=== PATIENT | female | born 1975 | race Caucasian/White ===

== ENCOUNTER 2016-09-03 15:22 | Outpatient (CLI) | payer OTHER | END 2016-09-03 15:23 | disposition home or self-care (01) | DX: R30.0 Dysuria (principal); Z11.3 Encounter for screening for infections with a predominantly sexual mode of transmission ==

== ENCOUNTER 2017-04-25 10:17 | Outpatient (CLI) | payer OTHER | END 2017-04-25 10:18 | LOC: LAB.R 10:17 | PROVIDERS: ATTEND Physician Assistant Medical | DX: J34.89 Other specified disorders of nose and nasal sinuses (principal) | CPT/HCPCS: 87070; 87205 ==

== ENCOUNTER 2017-09-23 13:03 | Outpatient (CLI) | payer OTHER ==
--- NOTE | 2017-09-23 16:15 | XRAY Report ---
THREE VIEW CERVICAL SPINE: 09/23/2017 CLINICAL INDICATION: Neck pain. FINDINGS: AP, lateral, odontoid views of the cervical spine demonstrate normal height and alignment of the vertebral bodies. The disk spaces are preserved. The prevertebral soft tissues are unremarkable. IMPRESSION: NORMAL CERVICAL SPINE. TD: 09/23/2017 16:15
--- NOTE | 2017-09-23 16:16 | XRAY Report ---
TWO VIEW THORACIC SPINE: 09/23/2017 CLINICAL INDICATION: Back pain. FINDINGS: Frontal and lateral views of the thoracic spine demonstrate minimal degenerative changes, with small anterior osteophytes. There is no evidence of compression fracture. Minimal dextroscoliosis is present, which may be positional in nature. IMPRESSION: MINIMAL DEGENERATIVE CHANGES. TD: 09/23/2017 16:16
--- NOTE | 2017-09-23 16:18 | XRAY Report ---
TWO VIEW LUMBAR SPINE: 09/23/2017 CLINICAL INDICATION: Back pain. FINDINGS: Frontal and lateral views of the lumbar spine demonstrate normal height and alignment of the vertebral bodies. The disk spaces are preserved. There is no evidence of fracture or subluxation. The bowel gas pattern appears unremarkable. IMPRESSION: NORMAL LUMBAR SPINE. TD: 09/23/2017 16:17
--- NOTE | 2017-09-23 16:19 | XRAY Report ---
SACROILIAC JOINTS: 09/23/2017 CLINICAL INDICATION: Pain. FINDINGS: Frontal and bilateral oblique views of the sacroiliac joints demonstrate no evidence of fracture. The sacroiliac joints are preserved. The sacral ala appear unremarkable. No foreign body is seen in the soft tissues. IMPRESSION: NORMAL SACROILIAC JOINTS. TD: 09/23/2017 16:19
--- NOTE | 2017-09-23 16:20 | XRAY Report ---
TWO VIEW RIGHT SHOULDER: 09/23/2017 CLINICAL INDICATION: Pain. FINDINGS: Frontal and scapular Y views of the right shoulder demonstrate no evidence of fracture. The joint spaces are preserved. No foreign body is seen in the soft tissues. IMPRESSION: NORMAL RIGHT SHOULDER. TD: 09/23/2017 16:20
== END 2017-09-23 13:04 | disposition home or self-care (01) ==
LOC: DI 13:03
PROVIDERS: ATTEND Physician Assistant Medical
DX: M47.894 Other spondylosis, thoracic region (principal); M25.511 Pain in right shoulder
CPT/HCPCS: 72040; 72070; 72100; 72202

== ENCOUNTER 2018-05-17 13:35 | Outpatient (CLI) | payer OTHER | END 2018-05-17 13:36 | LOC: LAB.R 13:35 | PROVIDERS: ATTEND Physician Assistant Medical | DX: J34.89 Other specified disorders of nose and nasal sinuses (principal) | CPT/HCPCS: 87070; 87205 ==

== ENCOUNTER 2019-06-15 07:00 | Outpatient (CLI) | payer OTHER ==
[2019-06-15 23:56] LABS: TRICHOMONAS VAGINALIS DNA NEGATIVE (NEGATIVE)
== END 2019-06-15 23:59 | disposition home or self-care (01) ==
LOC: LAB.R 07:00
PROVIDERS: ATTEND Obstetrics & Gynecology
DX: Z20.2 Contact with and (suspected) exposure to infections with a predominantly sexual mode of transmission (principal)
CPT/HCPCS: 87491; 87591; 87661

== ENCOUNTER 2019-07-13 08:00 | Outpatient (CLI) | payer OTHER ==
[2019-07-13 17:08] LABS: CANDIDA GROUP DNA NEGATIVE (NEGATIVE); CANDIDA KRUSEI DNA NEGATIVE (NEGATIVE); TRICHOMONAS VAGINALIS DNA NEGATIVE (NEGATIVE)
== END 2019-07-13 23:59 ==
LOC: LAB.R 08:00
PROVIDERS: ATTEND Nurse Practitioner Obstetrics & Gynecology
DX: N76.0 Acute vaginitis (principal); N30.90 Cystitis, unspecified without hematuria
CPT/HCPCS: 87661; 87801

== ENCOUNTER 2019-07-25 08:00 | Outpatient (CLI) | payer OTHER ==
[2019-07-25 21:08] LABS: CANDIDA GROUP DNA NEGATIVE (NEGATIVE); CANDIDA KRUSEI DNA NEGATIVE (NEGATIVE); TRICHOMONAS VAGINALIS DNA NEGATIVE (NEGATIVE)
== END 2019-07-25 23:59 | disposition home or self-care (01) ==
LOC: LAB.R 08:00
PROVIDERS: ATTEND Obstetrics & Gynecology
DX: N76.0 Acute vaginitis (principal)
CPT/HCPCS: 87661; 87801

== ENCOUNTER 2019-12-14 08:00 | Outpatient (CLI) | payer OTHER | END 2019-12-14 23:59 | disposition home or self-care (01) | LOC: LAB.WCP 08:00 | PROVIDERS: ATTEND Nurse Practitioner Family | DX: J34.89 Other specified disorders of nose and nasal sinuses (principal) | CPT/HCPCS: 87640 ==

== ENCOUNTER 2020-11-11 21:37 | Emergency (ER) | payer OTHER ==
[2020-11-11 21:48] VITALS: BP 115/72
--- NOTE | 2020-11-11 21:50 | ED Physician Documentation ---
PD HPI HEENT - Stated complaint Stated Complaint: L EYE IRRITATION - Chief complaint Chief Complaint: General - History obtained from History obtained from: Patient - History of Present Illness Timing - onset: How many days ago (2) Timing - duration: Days Timing - details: Abrupt onset Pain level now: 2 Improves: Nothing Associated symptoms: No: Fever, Congestion, Rhinorrhea, Facial swelling - Additional information Additional information: c/o left eye irritation, tearing, redness, and FB sensation. 2 days ago patient was pulling seeds off of a plant and one of the seeds struck her in the left eye. she was wearing contact lenses at the time but has since been wearing glasses due to irritation. she had redness and thick, white discharge the following day (yesterday) and although the discharge has resolved (now just frequent watery tearing), the left eye has become more red and irritated with FB sensation and burning sensation. denies visual changes Review of Systems Constitutional: reports: Reviewed and negative Eyes: reports: Discharge, Irritation. 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 - Present Medications Home Medications: Ambulatory Orders Medication Instructions Recorded Confirmed Cetirizine HCl [All Day Allergy 20 mg PO DAILY 11/11/20 11/11/20 Relief] Ofloxacin 0.3% Ophth Drops 1 drops LEFTEYE QID 7 Days #5 ml 11/11/20 [Ocuflox 0.3% Ophth Drops] Spironolactone [Aldactone] 50 mg PO DAILY 11/11/20 11/11/20 - Allergies Allergies/Adverse Reactions: Allergies Allergy/AdvReac Type Severity Reaction Status Date / Time Penicillins Allergy Severe Rash Verified 11/09/12 00:52 - Social History Does the pt smoke?: No Smoking Status: Never smoker PD ED PE NORMAL - Vitals Vital signs reviewed: Yes - General General: Alert and oriented X 3, No acute distress, Well developed/nourished PD ED PE EXPANDED - HEENT HEENT: PERRL, EOMI - Eyes Eyes: Left eye, Normal eyelids, No eyelid FB (everted), Injected conj/sclera, Anterior chambers clear. No: Eyelid swelling, Exudate, Conj/sclera FB, Subconj hemorrhage, Corneal FB, Corneal abrasion, Corneal ulcer, Fluorescein uptake Results - Vitals Vitals: Vital Signs - 24 hr 11/11/20 21:40 Temperature 36.9 C Heart Rate 71 Respiratory 14 Rate Blood Pressure 115/72 O2 Saturation 99 Oxygen O2 Source Room air PD MEDICAL DECISION MAKING - ED course Complexity details: considered differential, d/w patient ED course: left eye chemosis without fluorescein uptake nor visualized FB. Departure - Departure Disposition: 01 Home, Self Care Clinical Impression: Conjunctivitis Qualifiers: Conjunctivitis type: acute Acute conjunctivitis type: unspecified Laterality: left Qualified Code(s): H10.32 - Unspecified acute conjunctivitis, left eye Condition: Good Instructions: ED Conjunctivitis Nonspecific Prescriptions: Ofloxacin 0.3% Ophth Drops [Ocuflox 0.3% Ophth Drops] 1 drops LEFTEYE QID 7 Days #5 ml Comments: Do not wear contact lenses until 24 hours after symptoms have resolved Discharge Date/Time: 11/11/20 22:39
[2020-11-11] MEDS ORDERED: PROPARACAINE 0.5% OPHTH DROPS 15 ML LEFTEYE STA (21:51)
[2020-11-11] MEDS ORDERED: POLYMYXIN B/TRIMETH OPHTH DROPS LEFTEYE STA (22:06)
== END 2020-11-11 22:39 | disposition home or self-care (01) ==
LOC: ED 21:37
DX: H10.32 Unspecified acute conjunctivitis, left eye (principal)
CPT/HCPCS: 99282; 99283; A9270; J3490

== ENCOUNTER 2020-12-26 07:00 | Outpatient (CLI) | payer OTHER ==
[2020-12-26 22:44] LABS: BACTERIAL VAGINOSIS DNA POSITIVE (NEGATIVE); CANDIDA GLABRATA DNA NEGATIVE (NEGATIVE); CANDIDA GROUP DNA NEGATIVE (NEGATIVE); CANDIDA KRUSEI DNA NEGATIVE (NEGATIVE); TRICHOMONAS VAGINALIS DNA NEGATIVE (NEGATIVE)
[2020-12-26 22:57] LABS: CHLAMYDIA TRACHOMATIS DNA NEGATIVE (NEGATIVE); NEISSERIA GONORRHOEAE DNA NEGATIVE (NEGATIVE); TRICHOMONAS VAGINALIS DNA NEGATIVE (NEGATIVE)
== END 2020-12-26 23:59 | disposition home or self-care (01) ==
LOC: LAB.N 07:00
PROVIDERS: ATTEND Physician Assistant Medical
DX: N89.8 Other specified noninflammatory disorders of vagina (principal)
CPT/HCPCS: 87086; 87491; 87591; 87661; 87801

== ENCOUNTER 2021-02-27 08:00 | Outpatient (CLI) | payer OTHER ==
[2021-02-28 03:23] LABS: BACTERIAL VAGINOSIS DNA POSITIVE (NEGATIVE); CANDIDA GLABRATA DNA NEGATIVE (NEGATIVE); CANDIDA GROUP DNA NEGATIVE (NEGATIVE); CANDIDA KRUSEI DNA NEGATIVE (NEGATIVE); TRICHOMONAS VAGINALIS DNA NEGATIVE (NEGATIVE)
== END 2021-02-27 23:59 | disposition home or self-care (01) ==
LOC: LAB.N 08:00
PROVIDERS: ATTEND Physician Assistant Medical
DX: N39.0 Urinary tract infection, site not specified (principal); N89.8 Other specified noninflammatory disorders of vagina
CPT/HCPCS: 87086; 87661; 87801

== ENCOUNTER 2021-03-26 08:00 | Outpatient (CLI) | payer OTHER | END 2021-03-26 23:59 | disposition home or self-care (01) | LOC: LAB.N 08:00 | PROVIDERS: ATTEND Physician Assistant Medical | DX: R31.9 Hematuria, unspecified (principal) | CPT/HCPCS: 87086 ==

== ENCOUNTER 2021-03-31 08:00 | Outpatient (CLI) | payer OTHER | END 2021-03-31 23:59 | disposition home or self-care (01) | LOC: LAB 08:00 | PROVIDERS: ATTEND Nurse Practitioner | DX: J34.89 Other specified disorders of nose and nasal sinuses (principal) | CPT/HCPCS: 87070; 87205 ==

== ENCOUNTER 2021-06-04 08:00 | Outpatient (CLI) | payer OTHER ==
[2021-06-04 15:41] LABS: BILIRUBIN,URINE NEGATIVE (NEGATIVE); GLUCOSE, URINE (UA) NEGATIVE (NEGATIVE); KETONES,URINE (UA) NEGATIVE (NEGATIVE); LEUKOCYTE ESTERASE, URINE NEGATIVE (NEGATIVE); NITRITE,URINE NEGATIVE (NEGATIVE); OCCULT BLOOD,URINE NEGATIVE (NEGATIVE); PROTEIN,URINE NEGATIVE (NEGATIVE); UROBILINOGEN,URINE 0.2 (NORMAL) E.U./dL (NORMAL)
[2021-06-04 15:48] LABS: CLARITY,URINE CLEAR (CLEAR)
[2021-06-04 15:49] LABS: BACTERIA,URINE None Seen /HPF (None Seen); RBC,URINE None Seen /HPF (0-5); SQUAMOUS EPITHELIAL CELL,UR RARE Squamous (<= Few); WBC,URINE 0-3 /HPF (0-5)
[2021-06-04 21:53] LABS: CHLAMYDIA TRACHOMATIS DNA NEGATIVE (NEGATIVE); NEISSERIA GONORRHOEAE DNA NEGATIVE (NEGATIVE); TRICHOMONAS VAGINALIS DNA NEGATIVE (NEGATIVE)
[2021-06-04 22:40] LABS: BACTERIAL VAGINOSIS DNA NEGATIVE (NEGATIVE); CANDIDA GLABRATA DNA NEGATIVE (NEGATIVE); CANDIDA GROUP DNA POSITIVE (NEGATIVE); CANDIDA KRUSEI DNA NEGATIVE (NEGATIVE); TRICHOMONAS VAGINALIS DNA NEGATIVE (NEGATIVE)
== END 2021-06-04 23:59 | disposition home or self-care (01) ==
LOC: LAB 08:00
PROVIDERS: ATTEND Obstetrics & Gynecology
DX: R31.9 Hematuria, unspecified (principal); N89.8 Other specified noninflammatory disorders of vagina
CPT/HCPCS: 81001; 87086; 87491; 87591; 87661; 87801

== ENCOUNTER 2021-06-12 19:56 | Outpatient (CLI) | payer OTHER ==
--- NOTE | 2021-06-14 10:50 | Ultrasound Report ---
PROCEDURE: Pelvic w/Transvaginal INDICATIONS: PELVIC PAIN TECHNIQUE: Real-time scanning was performed of the pelvic organs, with image documentation. Additional endovagi nal scanning was necessary due to incomplete visualization of the adnexal and endometrial structures by transabdominal scanning. COMPARISON: None. FINDINGS: No pathologic free abdominal or pelvic fluid. Uterus: Uterus is mildly enlarged measuring 5.2 x 6.0 x 9.6 cm. Heterogenous uterine echotexture wi thout discrete mass. Ovaries: Right ovary unremarkable measuring 1.5 x 1.8 x 2.4 cm. Left ovary measures 2.1 x 2.7 x 3.9 cm, inclusive of an approximately 2.6 cm hypoechoic mass which may represent either a cyst or endomet rioma. IMPRESSION: Approximately 2.6 cm hypoechoic mass in the left ovary could represent a cyst or endometrioma. Follow -up in 4-6 weeks recommended to help differentiate. Heterogenous uterine echotexture without discrete mass. Findings may represent adenomyosis in the ruth ropriate clinical setting. Reviewed by: Kyle Osborne MD on 06/14/2021 10:49 AM PST Approved by: Kyle Osborne MD on 06/14/2021 10:49 AM PST Station ID: [id number]
== END 2021-06-12 19:57 | disposition home or self-care (01) ==
LOC: DI 19:56
PROVIDERS: ATTEND Obstetrics & Gynecology
DX: N83.9 Noninflammatory disorder of ovary, fallopian tube and broad ligament, unspecified (principal)

== ENCOUNTER 2021-06-19 11:27 | Outpatient (CLI) | payer OTHER ==
[2021-06-19 17:45] LABS: BASOPHILS # (AUTO) 0.1 10^3/uL (0.0-0.1); BASOPHILS % (AUTO) 1.6 %; EOSINOPHILS # (AUTO) 0.2 10^3/uL (0.0-0.7); EOSINOPHILS % (AUTO) 4.4 %; HCT - HEMATOCRIT 41.1 % (37.0-47.0); HGB - HEMOGLOBIN 13.6 g/dL (12.0-16.0); LYMPHOCYTES % (AUTO) 26.8 %; MEAN CORPUSCULAR HEMOGLOBIN 30.2 pg (27.0-31.0); MEAN CORPUSCULAR HGB CONC 33.1 g/dL (32.0-36.0); MEAN CORPUSCULAR VOLUME 91.1 fL (81.0-99.0); MEAN PLATELET VOLUME 11.4 fL (7.9-10.8); MONOCYTES # (AUTO) 0.4 10^3/uL (0.0-1.0); MONOCYTES % (AUTO) 10.2 %; NEUTROPHILS # (AUTO) 2.2 10^3/uL (1.5-6.6); PLT - PLATELET COUNT 174 10^3/uL (130-450); RED BLOOD COUNT 4.51 10^6/uL (4.20-5.40); RED CELL DISTRIBUTION WIDTH 13.2 % (12.0-15.0); WHITE BLOOD COUNT 3.8 x10^3/uL (4.8-10.8)
[2021-06-19 18:05] LABS: ALBUMIN 4.6 g/dL (3.2-5.5); ALBUMIN/GLOBULIN RATIO 1.7 (1.0-2.2); ALKALINE PHOSPHATASE 41 IU/L (42-121); ALT ALANINE AMINOTRANSFERASE 17 IU/L (10-60); AST ASPARTATE AMINOTRANSFERASE 21 IU/L (10-42); BUN - BLOOD UREA NITROGEN 17 mg/dL (6-20); CALCIUM 9.2 mg/dL (8.5-10.3); CARBON DIOXIDE - CO2 29 mmol/L (21-32); CHLORIDE 102 mmol/L (101-111); CHOL/HDL RATIO 2.7 (<4.4); CHOLESTEROL 219 mg/dL; CREATININE 0.8 mg/dL (0.4-1.0); GFR - MDRD 77 (>89); GLUCOSE 79 mg/dL (70-100); HDL CHOLESTEROL 81 mg/dL; LDL CHOLESTEROL,CALCULATED 129 mg/dL; LDL/HDL RATIO 1.6 (<4.4); POTASSIUM 4.3 mmol/L (3.5-5.0); SODIUM 138 mmol/L (135-145); TOTAL PROTEIN 7.3 g/dL (6.7-8.2); TRIGLYCERIDES 43 mg/dL; VLDL CHOLESTEROL 9 mg/dL
[2021-06-19 18:14] LABS: THYROID STIMULATING HORMONE 2.33 uIU/mL (0.34-5.60)
== END 2021-06-19 23:59 | disposition home or self-care (01) ==
LOC: LAB.WCP 11:27
PROVIDERS: ATTEND Nurse Practitioner
DX: R53.83 Other fatigue (principal); Z13.220 Encounter for screening for lipoid disorders
CPT/HCPCS: 36415; 80053; 80061; 83721; 84443; 85025

== ENCOUNTER 2021-07-10 09:02 | Outpatient (CLI) | payer OTHER ==
--- NOTE | 2021-07-13 15:49 | Mammography Report ---
BILATERAL DIGITAL DIAGNOSTIC MAMMOGRAM 3D/2D: 07/10/2021 CLINICAL: Palpable right breast lump. Bloody nipple discharge right breast. Comparison is made to exams dated: 12/12/2014 mammogram, 09/07/2013 mammogram, and 09/07/2013 ultrasound - [facility]. The tissue of both breasts is heterogeneously dense. This may lower the sensitivity of mammography. There are new diffuse segmental calcifications in the right breast at 10 o'clock posterior depth. Th max are seen in additional views. This correlates as palpated. No other significant masses, calcifications, or other findings are seen in either breast. IMPRESSION: INCOMPLETE: NEEDS ADDITIONAL IMAGING EVALUATION The new diffuse segmental calcifications in the right breast are indeterminate. An ultrasound is rec ommended. This exam was interpreted at Station ID: [id number]. NOTE: For mammograms, a report in lay terms will be sent to the patient. Approximately 15% of breast malignancies will not be visualized mammographically. In the management of a palpable breast mass, a negative mammogram must not discourage biopsy of a clinically suspicious lesion. Electronically Signed By: Gabriele Merino acr/:07/10/2021 09:49:18 ACR BI-RADS Category 0: Incomplete 3340F PARENCHYMAL PATTERN: (D) - The breast(s) demonstrate(s) heterogeneously dense fibroglandular parenchy ma. BI-RADS CATEGORY: (0) - 0 Unspecified - other recall n/a LATERALITY: (B)
--- NOTE | 2021-07-13 15:49 | Ultrasound Report ---
LIMITED ULTRASOUND OF RIGHT BREAST: 07/10/2021 CLINICAL: Palpable right breast lump. Comparison is made to exams dated: 07/10/2021 mammogram, 12/12/2014 mammogram, 09/07/2013 mammogram, and 09/07/2013 ultrasound - [facility]. Color flow and real-time ultrasound of the right breast 10 o'clock region were performed. Romero scale images of the real-time examination were reviewed. No abnormality which corresponds with the mammographic abnormality is seen. IMPRESSION: INCOMPLETE: NEEDS ADDITIONAL IMAGING EVALUATION There is no abnormality seen in the right breast to correspond with the area of clinical concern at 1 0 o'clock. The patient's history is that she had a palpable abnormality and bloody discharge which was present l ast week and her PCP was also able to express a bloody discharge. However since that time she states that her discharge and redness are no longer present. Mammogram performed today demonstrates no mas s and has scattered but benign appearing punctate calcifications in the region which are not in and o f themselves concerning appearing, however together with her history of palpable mass in bloody disch arge, MRI is recommended. This exam was interpreted at Station ID: [id number]. Electronically Signed By: Gabriele Merino acr/:07/10/2021 13:26:31 Ultrasound BI-RADS: 0 Indeterminate BI-RADS CATEGORY: (0) - 0 MRI [id number] Immediate follow-up LATERALITY: (B)
== END 2021-07-10 09:03 | disposition home or self-care (01) ==
LOC: DI 09:02
PROVIDERS: ATTEND Obstetrics & Gynecology
DX: N63.10 Unspecified lump in the right breast, unspecified quadrant (principal); N64.52 Nipple discharge; R92.8 Other abnormal and inconclusive findings on diagnostic imaging of breast

== ENCOUNTER 2022-04-20 08:00 | Outpatient (CLI) | payer OTHER ==
[2022-04-20 22:58] LABS: BACTERIAL VAGINOSIS DNA NEGATIVE (NEGATIVE); CANDIDA GLABRATA DNA NEGATIVE (NEGATIVE); CANDIDA GROUP DNA NEGATIVE (NEGATIVE); CANDIDA KRUSEI DNA NEGATIVE (NEGATIVE); TRICHOMONAS VAGINALIS DNA NEGATIVE (NEGATIVE)
[2022-04-21 00:03] LABS: CHLAMYDIA TRACHOMATIS DNA NEGATIVE (NEGATIVE); NEISSERIA GONORRHOEAE DNA NEGATIVE (NEGATIVE)
== END 2022-04-20 23:59 | disposition home or self-care (01) ==
LOC: LAB.N 08:00
PROVIDERS: ATTEND Nurse Practitioner
DX: N89.8 Other specified noninflammatory disorders of vagina (principal)
CPT/HCPCS: 81514; 87491; 87591; 87661

== ENCOUNTER 2022-06-05 12:40 | Outpatient (CLI) | payer OTHER ==
--- NOTE | 2022-06-07 10:09 | XRAY Report ---
PROCEDURE: Sacrum/Coccyx INDICATIONS: Coccyx pain TECHNIQUE: 3 views of the sacrum and coccyx acquired. COMPARISON: None. FINDINGS: Bones: No fractures or dislocations. No suspicious bony lesions. Soft tissues: Visualized bowel gas pattern is normal. No suspicious soft tissue densities. IMPRESSION: No acute finding. No findings of coccyx fracture. No evidence of subluxation or dislocation involving the coccyx. Reviewed by: Kyle Osborne MD on 06/07/2022 9:07 AM [facility] Approved by: Kyle Osborne MD on 06/07/2022 9:07 AM [facility] Station ID: [id number]
--- NOTE | 2022-06-07 10:10 | XRAY Report ---
PROCEDURE: Shoulder 3 View RT INDICATIONS: SHOULDER PAIN TECHNIQUE: 3 views of the shoulder were acquired. COMPARISON: None. FINDINGS: Bones: No fractures or dislocations. No suspicious bony lesions. Visualized ribs appear intact. Soft tissues: No suspicious soft tissue calcifications. IMPRESSION: No significant degenerative change. No acute finding. Reviewed by: Kyle Osborne MD on 06/07/2022 9:09 AM [facility] Approved by: Kyle Osborne MD on 06/07/2022 9:09 AM [facility] Station ID: [id number]
== END 2022-06-05 12:41 | disposition home or self-care (01) ==
LOC: DI 12:40
PROVIDERS: ATTEND Registered Nurse
DX: M53.3 Sacrococcygeal disorders, not elsewhere classified (principal); M25.511 Pain in right shoulder

== ENCOUNTER 2022-10-09 13:50 | Outpatient (CLI) | payer OTHER, MEDICAID ==
--- NOTE | 2022-10-11 11:37 | MRI Report ---
PROCEDURE: SHOULDER WO - RT INDICATIONS: RIGHT ROTATOR CUFF SYNDROME TECHNIQUE: Noncontrast oblique coronal T2 fast spin echo with fat saturation, oblique sagittal T1 spin echo and T2 fast spin echo with fat saturation, axial T1 spin echo and T2 fast spin echo with fat saturation t hrough the shoulder. COMPARISON: Right shoulder radiographs 06/05/2022. FINDINGS: Image quality: Excellent. Rotator cuff: There is at least high-grade partial thickness and likely full-thickness partial-width tearing of the supraspinatus tendon at the anterior footprint measuring approximately 0.5 cm in anter oposterior dimension with proximal retraction of torn tendon fibers measuring up to 0.7 cm. Findings are superimposed on supraspinatus tendinosis and mild infraspinatus tendinosis. The teres minor and s ubscapularis tendons are intact. There is no significant rotator cuff muscle atrophy. Bones and bursae: No acute trabecular bone injury. Chronic traction cystic changes are seen at the p osterosuperior humeral head and greater tuberosity near the rotator cuff tendon insertions. No focal glenohumeral cartilage defect is seen. Ioyo-yc-olsfgtyo degenerative changes are seen at the acromioc lavicular joint with subchondral cystic changes. There is a small amount of fluid in the subacromial/ subdeltoid bursa. No significant glenohumeral effusion. Capsule and soft tissues: No displaced labral tear. The proximal biceps long head tendon demonstrate s mild tendinosis. There is partial effacement of the normal fat signal in the rotator interval. The inferior glenohumeral ligament is mildly thickened. IMPRESSION: 1.At least high-grade partial thickness and likely full-thickness tearing of the supraspinatus tendon at the anterior footprint measuring 0.5 cm in anteroposterior dimension with mild retraction of tend on fibers measuring up to 0.7 cm. Mild supraspinatus and infraspinatus tendinosis. 2.Mild tendinosis of the proximal biceps long head tendon. 3.Mild to moderate acromioclavicular joint osteoarthrosis. 4.Small subacromial/subdeltoid bursal effusion or bursitis. 5.Partial effacement of the rotator interval fat and mild thickening of the inferior glenohumeral lig ament are nonspecific, but can be seen in the setting of the clinical syndrome of adhesive capsulitis . Reviewed by: Gerardo Antunez MD on 10/11/2022 11:36 AM PDT Approved by: Gerardo Antunez MD on 10/11/2022 11:36 AM PDT Station ID: [id number]
== END 2022-10-09 13:51 | disposition home or self-care (01) ==
LOC: DI 13:50
PROVIDERS: ATTEND Physician Assistant Surgical
DX: M75.111 Incomplete rotator cuff tear or rupture of right shoulder, not specified as traumatic (principal); M19.011 Primary osteoarthritis, right shoulder; M75.51 Bursitis of right shoulder; M75.81 Other shoulder lesions, right shoulder

== ENCOUNTER 2023-05-15 08:00 | Outpatient (CLI) | payer OTHER | END 2023-05-15 23:59 | disposition home or self-care (01) | LOC: MERGE 08:00 → LAB 08:00 | PROVIDERS: ATTEND Internal Medicine | DX: D72.810 Lymphocytopenia (principal) | CPT/HCPCS: 81599; 84156; 84166; 86335 ==

== ENCOUNTER 2023-11-07 20:19 | Emergency (ER) | payer OTHER ==
--- NOTE | 2023-11-07 20:37 | ED Physician Documentation ---
History of Present Illness - Stated complaint Stated Complaint: R SHOULDER INJ - Chief complaint Chief Complaint: Trauma Ext - Additonal information Additional information: 48-year-old female presented to the emergency department chief complaint right shoulder pain. Ongoing x 2-3 days. Began slowly after reportedly heavy lifting, specifically stated was carrying heavy trash cans over her back. Reports a previous rotator cuff injury to the same shoulder. States that she feels an unusual bulge, in the middle of her back and has significant pain primarily around the trapezius and lateral aspect of the shoulder.No shooting pains down the arm. Denies numbness, weakness involving the right upper extremity. No neck pain. 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 - Present Medications Home Medications: Ambulatory Orders Medication Instructions Recorded Confirmed Cetirizine HCl [All Day Allergy 20 mg PO DAILY 11/11/20 11/11/20 Relief] Ofloxacin 0.3% Ophth Drops 1 drops LEFTEYE QID 7 Days #5 ml 11/11/20 [Ocuflox 0.3% Ophth Drops] Spironolactone [Aldactone] 50 mg PO DAILY 11/11/20 11/11/20 Norethindrone Acetate 5 mg PO DAILY 05/04/23 06/01/23 [Norethindrone AC (L[place]an[place])] Spironolactone [Aldactone] 100 mg PO DAILY 05/04/23 06/01/23 Ibuprofen [Motrin] 800 mg PO Q8H PRN #30 tablet 11/07/23 Oxycodone HCl/Acetaminophen 1 - 2 each PO Q6H PRN #14 tablet 11/07/23 [Percocet 5-325 mg Tablet] - Allergies Allergies/Adverse Reactions: Allergies Allergy/AdvReac Type Severity Reaction Status Date / Time Penicillins Allergy Severe Rash Verified 11/07/23 20:22 Sulfa (Sulfonamide AdvReac Rash Verified 11/07/23 20:22 Antibiotics) - Social History Does the pt smoke?: No Smoking Status: Never smoker Does the pt drink ETOH?: Yes Does the pt have substance abuse?: No - Immunizations Immunizations are current?: Yes - POLST Patient has POLST: No PD ED PE NORMAL - Vitals Vital signs reviewed: Yes - General General: Alert and oriented X 3, No acute distress - HEENT HEENT: Atraumatic, PERRL - Neck Neck: Other (There is no cervical spinal tenderness to palpation. There is tenderness to palpation along the right trapezius muscle. There is some notable asymmetry involving the right versus left scapular) Results - Vitals Vitals: Vital Signs - 24 hr 11/07/23 11/07/23 20:22 20:27 Temperature 36.8 C Heart Rate 68 68 Respiratory 16 Rate Blood Pressure 129/64 O2 Saturation 100 Oxygen O2 Source Room air PD Medical Decision Making - ED course ED course: Patient 48-year-old female presenting with right shoulder pain. Ongoing x 4 days. No specific traumatic injury. Neurovascularly intact. Some asymmetry noted to the patient's scapula but she has an appropriate range of motion. Possible long thoracic nerve injury is considered however definitive diagnosis will require follow-up with orthopedics. X-ray negative for trauma. Possibly some mild calcific tendinitis. Patient provided with sling. Instructed in range of motion/Codman's exercises. Provided medication for pain control and follow-up. Departure - Departure Disposition: 01 Home, Self Care Clinical Impression: Shoulder pain Qualifiers: Chronicity: acute Laterality: right Qualified Code(s): M25.511 - Pain in right shoulder Prescriptions: Ibuprofen [Motrin] 800 mg PO Q8H PRN #30 tablet PRN Reason: PAIN &/OR FEVER Oxycodone HCl/Acetaminophen [Percocet 5-325 mg Tablet] 1 - 2 each PO Q6H PRN #14 tablet PRN Reason: pain Comments: Thank you for allowing us to care for you today at [facility]. Today in the emergency department you were evaluated for any possible dangerous or life-threatening medical emergency. The x-rays taken today did not show any fracture or dislocation. You do have some calcium deposits on one of the tendons of your rotator cuff. It is possible that this could be contributing to your symptoms. It is importantly follow-up with your primary care doctor as well as with an medical record retrieval specialist. I have included contact information for orthopedics in your discharge paperwork. Alternatively you can follow-up with the orthopedic surgeon who has helped you with your previous rotator cuff injuries. I have also written medication you can take for pain control. Please use this only as directed. You are provided with a sling here in the emergency department for your use as needed. I recommend using the sling as little as possible as mcc immobilization of the shoulder can learn to a condition known as adhesive capsulitis or frozen shoulder. As you use the sling please engage in regular range of motion exercises codman's exercises such as as demonstrated here in the emergency department. If it anytime you develop new or worsening symptoms please not hesitate to return. Forms: PCP List
[2023-11-07 21:59] VITALS: BP 122/60; O2SAT 98
--- NOTE | 2023-11-07 22:16 | XRAY Report ---
PROCEDURE: Shoulder 2+V RT INDICATIONS: shoulder/scapular injury TECHNIQUE: 3 views of the shoulder were acquired. COMPARISON: 06/05/2022 FINDINGS: Bones: No acute displaced fracture. Mild glenohumeral and mild to moderate acromial clavicular degen erative changes. Small spur or bone fragment again seen adjacent to the acromion. Soft tissues: Calcific tendinopathy. IMPRESSION: No acute radiographic abnormality. If there is high concern for occult injury, consider repeat radiog jose m or cross-sectional imaging. Degenerative changes are present. Reviewed by: Suman Batista MD on 11/07/2023 10:14 PM PDT Approved by: Suman Batista MD on 11/07/2023 10:14 PM PDT Station ID: [id number]
== END 2023-11-07 21:56 | disposition home or self-care (01) ==
LOC: ED 20:19
DX: M25.511 Pain in right shoulder (principal); X50.0XXA Overexertion from strenuous movement or load, initial encounter; Y93.89 Activity, other specified; Y99.0 Civilian activity done for income or pay
CPT/HCPCS: 99283